=== PATIENT | female | born 1990 | race Asian ===

== ENCOUNTER 2020-05-19 07:34 | Inpatient (IN) ==
--- NOTE | 2020-05-19 08:28 | History & Physical Report ---
Date of Service May 19, 2020 Assessment & Plan (1) : Marylu is a 29 y/o female currently at 38 WGA with an CASH 05/22/20 as determined by US who is here for elective induction. Her was complicated by small fetus for GA. Patient requires translation services in [facility] [place] for limited [place]ian proficiency. Fetus cat I. - Proceed with IOL with Pitocin protocol - Anesthesia consulted for discussion of epidural - GBS negative - COVID-19 negative - Admission labs ordered--follow results Code: Full Code Diet: NPO Admission and Anticipated Discharge Date Admission Date: May 19, 2020 History of Present Illness Primary Care Provider: NO PCP Marylu is a 29 y/o female currently at 39 4/7 WGA with an CASH 05/22/20 as determined by US who is here for elective induction. Her was complicated by small fetus for GA. Pos contractions; Good movement; Pos fluid loss; No bloody show Had regular appointments with OB. Blood type: A+ Antibody screen: neg Labs 05/19/20 Rubella: Immune VDRL/RPR: negative (10/04/19) Gonorrhea: negative Chlamydia: negative HIV: neg (10/04/19) HbSAg: neg GBS: neg 04/24/20 COVID-19 negative 05/08/20 Other screens: cff-DNA: Neg (see scanned documents) CF: neg SMA: neg Allergies Allergy/AdvReac Type Severity Reaction Status Date / Time No Known Allergies Allergy Verified 05/19/20 08:16 Home Medications Home Medications Medication Instructions Recorded Confirmed Type prenat.vits,kareen,ava-jyhg-lgrks 1 tab PO DAILY 09/25/19 05/19/20 History Patient History Medical History Hx of varicella Surgical History [place] teeth removed Family History (Updated 09/25/19 @ 11:10 by Ofelia Ferrell) Mother Fibroids Grandfather Hypertension Social History (Updated 09/25/19 @ 11:11 by Ofelia Ferrell) Smoking Status: Never smoker Hx Alcohol Use: No Hx Substance Use: No Preferred Language: [place] Communication Ability: Effective Alum Operator Required: No Beliefs That Will Affect Care: None marital status: marital status details: Chauncey Mas (28) [phone] Current Living Situation: Spouse Current Living Situation Comment: lives with spouse, no pets Other Information That Helps Us Care for You: No Feels Safe at Home: Yes Safety Concerns: Feels Safe At This Time Review of Systems Denies fever or chills. Denies shortness of breath or cough Denies chest pain Denies breast pain Denies dysuria or hematuria Denies leg pain or leg swelling Denies headache or changes in vision Physical Exam Physical Exam: General: Alert, oriented. No acute distress. Cardiac: Regular rate and rhythm, no murmurs/rubs/gallops. Respiratory: Clear to auscultation bilaterally a/p, no wheezes/rales/rhonchi. No increased work of breathing. Symmetrical chest rise. No respiratory distress. Abdomen: Gravid. Vertex position. + heart tones. + palpable contractions. EFW 34% Pelvic: Dilation 1cm; Effacement 50%; Station -[address] Pino External FHT and external uterine monitors used; Category I tracing;Moderate FHT variability. Lower Extremities: No lower extremity edema or swelling. No deep calf pain. Sariah's negative bilaterally. Results & Data ([facility]) Vital Signs (Past 12 Hours) Vital Signs Temp Pulse Resp BP 05/19/20 08:01 36.9 C 20 05/19/20 07:48 75 127/75 Supervising Physician Co-Signing Physician Notes Resident Physician Supervision Note: I interviewed and examined the patient. Discussed with Dr. Mallory and agree with findings and plan as documented in the note. Any exceptions or clarifications are listed here: [id number] @ 39 11/05, eIOL. [place] bulb placed this morning, pitocin started. [place] bulb fell out after a few hours. OK for epidural when she desires. Documented By: Lizzette Pino, Resident Activity Tracking Resident Involvement: Resident Care Provided Care Provided: OB Delivery
[2020-05-19] MEDS ORDERED: OXYTOCIN 30 UNITS/500 ML BAG IV PRN ×2 (08:51→22:21)
[2020-05-19] MEDS: LACTATED RINGER'S 1,000 ML IV PRN ×3 (09:18→19:02)
[2020-05-19] MEDS: OXYTOCIN 30 UNITS/500 ML BAG IV PRN ×2 (09:19→21:53)
[2020-05-19 09:29] LABS: Hematocrit (blood only) 35.4 % (37-47); Hemoglobin 11.8 g/dL (12.0-16.0); Mean Corpuscular Volume 95.9 fL (80-100); Mean Platelet Volume 10.5 fL (7.4-10.4); Platelet Count 165 K/uL (130-400); RDW Coefficient of Variation 13.4 % (11.5-14.5); RDW Standard Deviation 46.3 fL (36.4-46.3); Red Blood Count 3.69 M/uL (4.2-5.4); White Blood Count 4.99 K/uL (4.8-10.8)
[2020-05-19 09:43] LABS: Mean Corpuscular Hgb Conc 33.3 g/dL (32-36)
[2020-05-19] MEDS ORDERED: ePHEDrine sulfate 50 MG/ML AMP ONE (14:41)
[2020-05-19] MEDS ORDERED: SODIUM CHLORIDE 0.9% INJ 10 ML VIAL ONE (14:41)
[2020-05-19] MEDS ORDERED: fentaNYL citrate 100 MCG/2 ML VIAL ONE (14:41)
[2020-05-19] MEDS ORDERED: BUPIVACAINE 0.25% 30 ML VIAL ONE (14:41)
[2020-05-19] MEDS ORDERED: fentaNYL 2MCG/ML ROPIVACAINE 1.25MG/ML 100 ML BAG EPI ONE (14:42)
--- NOTE | 2020-05-19 14:44 | Labor Progress Brief Note ---
Date of Service May 19, 2020 Subjective Doing well. FHT Cat 1, [place] Q 4 Ctx getting uncomfortable. Asking for epidural. Will plan for epidural, then recheck cervix and plan for AROM. She is agreeable. Assessment & Plan Admission and Anticipated Discharge Date Admission Date: May 19, 2020 Results & Data ([facility]) Vital Signs (Past 12 Hours) Vital Signs Temp Pulse Resp BP Pulse Ox 05/19/20 14:38 76 99 05/19/20 14:37 73 104/69 05/19/20 13:39 74 98/61 L 05/19/20 12:32 75 20 113/70 05/19/20 11:33 66 108/68 05/19/20 10:27 36.8 C 72 20 100/58 L 05/19/20 09:21 70 108/71 05/19/20 08:01 36.9 C 20 05/19/20 07:48 75 127/75 Coding Level of Care Code None
--- NOTE | 2020-05-19 15:23 | Anesthesiology Consultation ---
Date of Service May 19, 2020 Assessment & Plan Chart Review Chart Review: Acceptable Risk for Labor Epidural Consults Requested none History Height/Weight Height: 5 ft 6.14 in Weight: 64 kg Allergies Allergy/AdvReac Type Severity Reaction Status Date / Time No Known Allergies Allergy Verified 05/19/20 08:16 Medications Home Medications Medication Instructions Recorded Confirmed Last Taken prenat.vits,kareen,idl-tagz-sctat 1 tab PO DAILY 09/25/19 05/19/20 05/18/20 12:00 Active Medications Generic Name Dose Route Start Last Admin Trade Name Freq PRN Reason Stop Dose Admin Oxytocin 30 units in 500 mls @ 19 mls/hr 05/19/20 08:03 05/19/20 14:10 Pitocin IV 05/21/20 08:02 1.14 units/hr .Q24H PRN 19 mls/hr Labor Induction/Augmentation Titration Protocol 1.14 UNITS/HR Lactated Ringer's 1,000 mls @ 125 mls/hr 05/19/20 08:51 05/19/20 15:17 Lr IV 05/21/20 08:50 125 mls/hr .Q8H PRN Infusion L&D Protocol Protocol Past Medical History Medical History Hx of varicella Past Family History Family History Mother Fibroids Grandfather Hypertension Past Surgical History Surgical History [place] teeth removed Social History Smoking Status: Never smoker Hx Alcohol Use: No Hx Substance Use: No Physical Exam Vital Signs Last Vital Signs Temp 36.8 C 05/19/20 10:27 Pulse 70 05/19/20 15:21 Resp 20 05/19/20 12:32 BP 110/69 05/19/20 15:21 Pulse Ox 98 05/19/20 15:18 Testing Laboratory Results 05/19/20 09:11
[2020-05-19] MEDS ORDERED: NALOXONE HCL 1 MG in SODIUM CHLORIDE 0.9% 1000ML 1,000 ML IV PRN (15:25)
[2020-05-19] MEDS ORDERED: diphenhydrAMINE 50 MG/ML VIAL IV PRN (15:25)
[2020-05-19] MEDS ORDERED: NALOXONE HCL 0.4 MG/1 ML VIAL/CARP IV PRN (15:25)
[2020-05-19] MEDS ORDERED: ePHEDrine sulfate 50 MG/ML AMP IV PRN (15:25)
[2020-05-19] MEDS ORDERED: fentaNYL 2MCG/ML ROPIVACAINE 1.25MG/ML 100 ML BAG EPI PRN (15:25)
--- NOTE | 2020-05-19 15:44 | Labor Progress Brief Note ---
Date of Service May 19, 2020 Subjective Comfortable with epidural. FHT Cat 1 [place] Q 2-3 Cervix 6/80/-1 AROM clear fluid Continue labor. Assessment & Plan Admission and Anticipated Discharge Date Admission Date: May 19, 2020 Results & Data ([facility]) Vital Signs (Past 12 Hours) Vital Signs Temp Pulse Resp BP Pulse Ox 05/19/20 15:38 75 99 05/19/20 15:37 67 110/69 05/19/20 15:33 72 99 05/19/20 15:32 71 111/70 05/19/20 15:28 79 97 05/19/20 15:27 75 107/70 05/19/20 15:23 75 99 05/19/20 15:21 70 110/69 05/19/20 15:19 77 115/77 05/19/20 15:18 74 98 05/19/20 15:17 85 116/74 05/19/20 15:15 76 120/78 05/19/20 15:13 105 H 119/76 99 05/19/20 15:08 86 98 05/19/20 15:03 78 99 05/19/20 14:58 71 100 05/19/20 14:53 76 99 05/19/20 14:48 78 99 05/19/20 14:43 74 100 05/19/20 14:38 76 99 05/19/20 14:37 73 104/69 05/19/20 13:39 74 98/61 L 05/19/20 12:32 75 20 113/70 05/19/20 11:33 66 108/68 05/19/20 10:27 36.8 C 72 20 100/58 L 05/19/20 09:21 70 108/71 05/19/20 08:01 36.9 C 20 05/19/20 07:48 75 127/75 Coding Level of Care Code None
[2020-05-19] MEDS ORDERED: ONDANSETRON INJ 2 MG/ML 2 ML VIAL IV PRN (17:30)
[2020-05-19] MEDS ORDERED: ONDANSETRON INJ 2 MG/ML 2 ML VIAL ONE (17:31)
[2020-05-19] MEDS ORDERED: BENZOCAINE 20% AER SPR 82.5 GM CAN EXT PRN (22:21)
[2020-05-19] MEDS ORDERED: SUPERCREAM 0.870% 15 GM JAR EXT PRN (22:21)
[2020-05-19] MEDS ORDERED: oxyCODONE/ACETAMINOPHEN 5mg/325mg TAB PO PRN (22:21)
[2020-05-19] MEDS ORDERED: ACETAMINOPHEN 325 MG TAB PO PRN (22:21)
[2020-05-19] MEDS ORDERED: HYDROCORTISONE ACETATE 25 MG SUPP PR PRN (22:21)
[2020-05-19] MEDS ORDERED: bisacodyL 10 MG SUPP PR PRN (22:21)
--- NOTE | 2020-05-19 22:22 | Delivery Summary ---
Vaginal Delivery Summary Date of Service May 19, 2020 Vaginal Delivery Summary Vaginal Delivery Summary: Pre-delivery diagnoses: 29yo @ 39 4/7, eIOL Post-delivery diagnoses: same Procedure: spontaneous vaginal delivery, repair of 2nd degree laceration and periurethral laceration Surgeon: Lizzette Pino DO Complications: none Findings: Viable male . Apgars: 8/9. Weight pending, please see nursery records. Estimated blood loss: 500ml Description of delivery: The patient progressed to complete with epidural anesthesia. She then began to push. She spontaneously vaginally delivered a viable from the cephalic presentation. The head delivered in MISHA position. No nuchal cord noted. The anterior shoulder delivered, followed by the posterior shoulder, followed by the body. The baby was placed on mother's abdomen and a spontaneous cry was heard. Delayed cord clamping was employed, and the cord was doubly clamped and cut. Cord blood was obtained. The placenta was delivered spontaneously intact with a 3-vessel cord. The uterus and vagina were swept of clots and debris. IV pitocin was given. The uterus became firm. The cervix, vagina, and perineum were inspected and a periurethral and 2nd degree lacerations were noted. Periurethral was located between urethra and clitoris - red rubber catheter was inserted to drain bladder and to ensure anatomy. This was sutured with 3-0 vicryl in running locked stitch. While anal sphincter was not lacerated, the 2nd degree laceration came directly to it - therefore a ifatdi-ov-qbqno was used to bring the tissue above it together with 3-0 Chromic. The remaining 2nd degree laceration was repaired in standard fashion with 3-0 Vicryl. Excellent hemostasis was observed. The mother and baby are recovering in stable and good condition in the room. Sponge, needle and instrument counts were correct x 2. Lizzette Pino DO [facility] Vaginal Delivery Charge Vaginal Delivery Codes: 45149 global code for the antepartum, delivery, and post-
[2020-05-19] MEDS ORDERED: DIPHTHERIA/TETANUS/PERTUSSIS 0.5 ML SYR/VIAL IM ONE (22:25)
[2020-05-20] MEDS: IBUPROFEN 600 MG TAB PO PRN ×2 (02:50→07:19)
--- NOTE | 2020-05-20 02:50 | Anesthesia Procedure Note ---
Date of Service May 20, 2020 Anesthesia Post Epidural Note Vital Signs Vital Signs: Temp Pulse Resp BP Pulse Ox 36.5 C 98 H 16 97/65 L 97 05/20/20 00:15 05/20/20 00:15 05/20/20 00:15 05/20/20 00:15 05/20/20 00:15 Notes Mental Status: alert / awake / arousable Nausea / Vomiting: adequately controlled Pain: adequately controlled Airway Patency, RR, SpO2: stable & adequate BP & HR: stable & adequate Hydration State: stable & adequate Neuraxial Anesthesia: was administered and sensory block is resolving Anesthetic Complications: no major complications apparent and Pt Satisfied with anesthetic care Epidural: Removed without complications and With tip intact
[2020-05-20 06:07] LABS: Hematocrit (blood only) 33.7 % (37-47); Hemoglobin 11.5 g/dL (12.0-16.0)
--- NOTE | 2020-05-20 06:25 | Obstetrical Progress Note ---
Date of Service <Leonidas Singleton MD - Last Filed: 05/20/20 07:44> May 20, 2020 Assessment & Plan <Leonidas Singleton MD - Last Filed: 05/20/20 07:44> (1) : - PNL: Rh pos, RI, GBS neg, COVID neg - Feels well today. Eating well, voiding well, ambulating well - Pain well controlled with ibuprofen 600mg Q4H PRN - Routine care -- OOB, ambulation, diet progression as tolerated - After discharge will have 6 week follow-up with Dr. Pino Subjective <Leonidas Singleton MD - Last Filed: 05/20/20 07:44> Marylu is a 29 y/o female who is PPD #1 following at 38+ weeks. She reports feeling well overall this morning. Light abdominal cramping and 1/10 pain well managed on analgesics. Voiding well. Tolerating meals overnight without difficulty. Patient has been able to ambulate some. Has persistent lochia with some improvement this morning. Currently . Review of Systems Denies fever or chills. Denies shortness of breath or cough. Denies chest pain. Denies breast pain. Denies dysuria. Denies leg pain or leg swelling. Denies headache or changes in vision. Physical Exam <Leonidas Singleton MD - Last Filed: 05/20/20 07:44> General: Alert, oriented. No acute distress. Cardiac: Regular rate and rhythm. No murmurs. Respiratory: Clear to auscultation bilaterally a/p, no wheezes/rales/rhonchi. No increased work of breathing. Symmetrical chest rise. No respiratory distress. Abdomen: Soft, nontender, nondistended. Bowel sounds present. Uterus: Uterine fundus firm, palpable 1cm below umbilicus. Lower Extremities: No lower extremity edema or swelling. No deep calf pain. Sariah's negative bilaterally. Results & Data ([facility]) <Leonidas Singleton MD - Last Filed: 05/20/20 07:44> Vital Signs (Past 12 Hours) Vital Signs Temp Pulse Pulse Resp BP BP Pulse Ox 05/20/20 05:00 37.0 C 69 16 98/61 L 96 20/20 00:15 36.5 C 98 H 16 97/65 L 97 2020 00:00 98 H 20 110/74 19/20 23:58 98 H 110/74 05/19/20 23:43 93 H 111/72 20 23:30 98 H 20 110/74 05/19/20 23:28 99 H 107/65 20 23:13 100 H 115/73 20 23:00 100 H 18 115/73 05/19/20 22:58 95 H 110/72 20 22:45 100 H 20 115/73 20 22:43 98 H 115/76 20 22:30 81 20 114/72 20 22:28 81 114/72 20 22:15 88 18 118/71 05/19/20 22:13 88 118/71 20 22:00 88 20 118/71 20 21:58 82 112/67 97 19/20 21:53 88 98 19/20 21:48 86 98 19/20 21:44 82 117/65 19/20 21:43 88 97 19/20 21:38 97 H 97 19/20 21:33 88 95 19/20 21:30 20 19/20 21:29 89 137/81 1019/20 21:28 93 H 99 19/20 21:23 83 97 19/20 21:18 84 98 19/20 21:14 83 111/70 19/20 21:13 78 98 19/20 21:08 89 98 19/20 21:03 84 98 1019/20 20:59 36.9 C 20 19/20 20:58 76 101/61 98 19/20 20:53 82 96 1019/20 20:48 83 97 19/20 20:43 81 114/70 98 19/20 20:38 87 97 19/20 20:33 81 98 1019/20 20:30 82 20 123/79 1019/20 20:28 79 98 10/19/20 20:23 83 99 10/19/20 20:18 92 H 98 05/19/20 20:16 91 H 124/85 05/19/20 20:13 88 99 05/19/20 20:08 85 99 05/19/20 20:03 92 H 97 05/19/20 19:59 92 H 20 125/82 05/19/20 19:58 104 H 96 05/19/20 19:53 75 98 05/19/20 19:48 77 97 05/19/20 19:44 67 113/70 05/19/20 19:43 70 98 05/19/20 19:38 67 97 05/19/20 19:33 70 97 05/19/20 19:31 67 112/71 05/19/20 19:30 20 05/19/20 19:28 66 97 05/19/20 19:23 67 97 05/19/20 19:18 70 97 05/19/20 19:15 69 112/72 05/19/20 19:13 67 96 05/19/20 19:08 76 97 05/19/20 19:05 36.9 C 20 05/19/20 19:03 68 98 05/19/20 18:58 68 117/74 98 05/19/20 18:53 73 97 05/19/20 18:48 68 98 05/19/20 18:44 69 112/71 05/19/20 18:43 67 98 05/19/20 18:38 69 98 05/19/20 18:33 70 96 05/19/20 18:31 20 05/19/20 18:28 64 109/67 97 05/19/20 18:23 67 97 <Lizzette Pino DO - Last Filed: 05/20/20 08:11> Co-Signing Physician Notes Resident Physician Supervision Note: I was present with Dr. Mallory during the history and exam. I discussed the case with the resident and agree with the findings and plan as documented in the note. Any exceptions or clarifications are listed here: PPD#1 doing well, anticipate DC home tomorrow. Documented By: Lizzette Pino DO Resident Activity Tracking <Leonidas Singleton MD - Last Filed: 05/20/20 07:44> Resident Involvement: Resident Care Provided Care Provided: OB Delivery
[2020-05-20] MEDS: DOCUSATE SODIUM 100 MG CAP PO SCH ×2 (07:19→20:50)
[2020-05-20] MEDS: PRENATAL VITAMIN 1 TAB PO SCH (07:19)
[2020-05-20] MEDS ORDERED: NON-FORMULARY MEDICATION (Prenat.Vits,Cal,Min-Iron-Folic 1 TAB) PO SCH (09:00)
[2020-05-20] MEDS ORDERED: bisacodyL 5 MG TABEC PO SCH (20:00)
[2020-05-21] MEDS: IBUPROFEN 600 MG TAB PO PRN ×2 (03:10→14:42)
--- NOTE | 2020-05-21 07:44 | Obstetrical Progress Note ---
Date of Service May 21, 2020 Assessment & Plan (1) Encounter for care and examination after delivery: Day #:: 2 Subjective Ambulation: ambulating normally Voiding: no voiding problems Passing Gas:: Yes Diet Tolerance:: regular diet Lochia:: Moderate Feeding Type:: breast feeding tailbone pain is minimal Physical Exam Constitutional WD/WN, vitals as above Psychiatric A+Ox3, euthymic affect Genitourinary OB Exam Abdomen: + fundal height Fundus: + firm and + relation to umbilicus (at U) Results & Data ([facility]) Vital Signs (Past 12 Hours) Vital Signs Temp Pulse Resp BP 05/20/20 23:45 99.3 F 94 H 18 100/67
[2020-05-21] MEDS: DOCUSATE SODIUM 100 MG CAP PO SCH (08:53)
[2020-05-21] MEDS: PRENATAL VITAMIN 1 TAB PO SCH (08:53)
== END 2020-05-21 15:25 | disposition home or self-care (01) | DRG 807 ==
LOC: 4S1 07:34 → 4S2 05-20 00:26